=== PATIENT | male | born 2000 | race African-American/Black ===

== ENCOUNTER 2025-06-19 09:02 | Day surgery (SDC) | payer OTHER ==
[~2025-06-19] VITALS: Ht 175.3 cm; Wt 66.3 kg
[~2025-06-19 09:02] MED LIST: UNRESOLVED CLARIFICATION ENTRY XX SCH
[2025-06-19] MEDS ORDERED: ONDANSETRON 4MG/2ML VIAL As Ordered ONE (09:14)
[2025-06-19] MEDS: ONDANSETRON 4MG/2ML VIAL IV STA (09:33)
[2025-06-19 09:54] LABS: BASO # 0.0 10^3/uL (0.0-0.2); BASO % 0.3 % (0.0-1.0); EOS # 0.0 10^3/uL (0.0-0.5); EOS % 0.1 % (0.0-3.0); LYMPH # 1.4 10^3/uL (1.5-5.0); LYMPH % 17.6 % (24.0-44.0); MONO # 0.3 10^3/uL (0.0-0.8); MONO % 4.1 % (2.0-8.0); NEUTROPHILS # 6.1 10^3/uL (1.5-8.5); NEUTROPHILS % 77.6 % (36.0-66.0); PLATELET COUNT, AUTOMATED 192 10^3/uL (150-450)
[2025-06-19] MEDS: NS (Normal Saline) 0.9% 1,000 ML IV ONE (10:00)
[2025-06-19 10:26] LABS: CALCIUM LEVEL 9.1 MG/DL (8.5-10.1); CARBON DIOXIDE LEVEL 28 MMOL/L (20-31); CHLORIDE LEVEL 105 MMOL/L (98-107); CREATININE FOR GFR 1.12 MG/DL (0.70-1.30); GLOMERULAR FILTRATION RATE > 90.0 (>60); POTASSIUM SERUM 3.8 MMOL/L (3.5-5.1); SODIUM LEVEL 141 MMOL/L (136-145)
[2025-06-19] MEDS ORDERED: HOME MED LIST COMPLETE! XX SCH (12:10)
[2025-06-19] MEDS: HYDROMORPHONE HCL 0.5 MG/0.5 ML SYRINGE IV PRN (13:19)
[2025-06-19] MEDS ORDERED: KETOROLAC 30 MG/ML 1 ML VIAL As Ordered ONE (13:30)
[2025-06-19 14:50] VITALS: BP 121/71; TEMP 97.9; O2SAT 99
== END 2025-06-19 15:05 | disposition home or self-care (01) ==
LOC: M ED 09:02 → M ED INP 09:03 → UNDOADMOB 09:03 → M SDC 09:03
PROVIDERS: ATTEND Orthopaedic Surgery
DX: S53.105A Unspecified dislocation of left ulnohumeral joint, initial encounter (principal); X58.XXXA Exposure to other specified factors, initial encounter; Y93.B9 Activity, other involving muscle strengthening exercises; Y99.1 Military activity
CPT/HCPCS: 24605; 73060; 73070; 73080; 73090; 80048; 85025; 93041; 99285; J1171; J1885; J2405; J3010

== ENCOUNTER → 2025-09-01 | Outpatient (REF) | payer OTHER ==
[2025-09-01 18:25] LABS: Trichomonas vaginalis (AMP) NOT DETECTED (NEGATIVE)
[2025-09-01 18:50] LABS: GC DNA AMPLIFICATION NEGATIVE (NEGATIVE)
== END ==
LOC: M LAB REF 16:41
PROVIDERS: ATTEND Physician Assistant
DX: Z20.2 Contact with and (suspected) exposure to infections with a predominantly sexual mode of transmission (principal)